=== PATIENT | male | born 1970 | race African-American/Black ===

== ENCOUNTER 2025-09-15 11:34 | Emergency (ER) | payer OTHER, SELFPAY ==
[2025-09-15 11:57] VITALS: BP 170/106
[2025-09-15 12:20] LABS: Hematocrit 43.4 % (39.0-52.0); Hemoglobin 14.8 g/dL (13.0-18.0); Mean Corp Hgb Conc. 34.1 g/dL (33.0-37.0); Mean Corpuscular Volume 76.7 fL (80.0-94.0); Nucleated Red Blood Cells % 0 % (-); Platelet Count 209 10^3/uL (130-400); Red Cell Dist. Width 16.5 % (11.5-14.5)
[2025-09-15 12:31] LABS: ALT (SGPT) 70 U/L (0-50); AST (SGOT) 40 U/L (17-59); Albumin 4.4 g/dl (3.5-5.0); Alkaline Phosphatase 79 U/L (38-126); Blood Urea Nitrogen 18 mg/dl (9-20); Calcium 9.2 mg/dl (8.4-10.2); Carbon Dioxide 26 mmol/L (22-30); Chloride 105 mmol/L (98-107); Glucose 109 mg/dl (70-99); Lipase 78 U/L (23-300); Potassium 4.3 mmol/L (3.5-5.1); Sodium 136 mmol/L (135-145); Total Protein 7.5 g/dl (6.3-8.2); eGFR > 60.00
[2025-09-15 14:34] VITALS: BP 155/96
[2025-09-15 15:44] VITALS: BMI 25.4
--- NOTE | 2025-09-15 15:52 | ED.GENMED ---
History of Present Illness
General
Chief Complaint: Abdominal Symptoms
Time Seen by Provider: 09/15/25 15:51
History of Present Illness
History of Present Illness:
FOCUSED PAST MEDICAL HISTORY
- No significant past medical history
REVIEW OF OLD RECORDS
- No old records available for review
Patient came in by ambulance and went to triage.
Note:
CHIEF COMPLAINT(S)
Vomiting.
HISTORY OF PRESENT ILLNESS
The patient is a 55-year-old male who presented with complaints of vomiting that began suddenly this morning. Per the patients , he was fine yesterday evening and woke up today feeling well until he started vomiting. The patient also reports
experiencing nausea and a 'little bit' of pain, which was more significant earlier today. The pain is described as a headache, indicating it may have different characteristics compared to his usual headaches. He denies any drug or alcohol use. The
patient has been somewhat difficult to arouse at times and appears confused on occasion. He is described as moderately tender with diffuse abdominal tenderness.
ADDITIONAL HISTORY OBTAINED FROM SOURCES OTHER THAN THE PATIENT
Per the patient�s spouse, the patient was fine yesterday evening and began vomiting suddenly this morning.
EXTERNAL RECORDS REVIEWED
Blood work revealed a slightly elevated white blood cell count, but electrolytes and kidney function tests were normal.
REVIEW OF SYSTEMS
- Gastrointestinal: Nausea, vomiting.
- Neurological: Appears confused at times, headache reported.
PHYSICAL EXAM
General: Alert, but somewhat difficult to arouse at times and appears confused. Of note, the patient's states that he 'gets like this when he has migraine'
Skin: Warm, dry.
Head: Normocephalic, atraumatic.
Neck: Supple, trachea midline.
Eye, Ears, Nose, Mouth, and Throat: Oral mucosa moist.
Cardiovascular: Normal peripheral perfusion, No edema.
Respiratory: Respirations are non-labored.
Gastrointestinal: Mildly diffusely tender without peritoneal signs
Back: Normal range of motion, Normal alignment.
Musculoskeletal: Normal range of motion, normal strength.
Neurological: Alert and oriented to person, although occasionally confused. No focal neurological deficit observed.
Psychiatric: Cooperative, appropriate mood & affect.
PLAN
An Intravenous line will be placed for administration of anti-nausea medication. A computed tomography scan of the abdomen has been ordered for further evaluation.
DIFFERENTIAL DIAGNOSIS
The Differential Diagnosis includes, in no particular order and is not limited to:
1. Gastroenteritis
2. Pancreatitis
3. Intestinal obstruction
4. Peptic ulcer disease
5. Acute cholecystitis
6. Appendicitis
7. Viral infection
8. Medication side effect
9. Renal colic
10. Alcohol withdrawal
RADIOLOGY
- CT suggest enteritis along with nondilated loops of bowel with a right inguinal hernia
LABS
- 11.1 white count, hemoglobin, chemistries unremarkable,
SUMMARY OF ENCOUNTER
The patient is a 55-year-old male who presented to the emergency department with sudden onset of vomiting, nausea, and headache. The patients initial assessment revealed difficulty with arousal and occasional confusion. Physical examination showed
moderate abdominal tenderness. Initial lab work identified a slightly elevated white blood cell count; electrolytes and kidney functions were normal. A CT scan of the abdomen was ordered for further evaluation. On reassessment, the patients primary
complaint shifted to a headache, with a noted soft tissue prominence in the right inguinal region, consistent with a hernia seen on imaging, though without incarceration.
PLAN
An intravenous line has been placed for the administration of anti-nausea medication. Continued observation and supportive care will be provided. The CT scan noted non-specific findings regarding the hernia with no signs of incarceration presently.
Management will focus on symptomatic relief of the headache and monitoring for any clinical changes.
INDEPENDENT REVIEW OF LABS AND INTERPRETATION OF TESTS
My independent review of the complete blood count indicates a slightly elevated white blood cell count. Electrolytes and kidney function tests were normal.
My independent CT scan of the abdomen interpretation is consistent with a soft tissue prominence in the right inguinal region with no clear sign of incarceration.
MEDICATION RECONCILIATION
An anti-nausea medication was administered intravenously. Specific medication name not indicated.
MEDICAL DECISION MAKING
- Complexity of Data Reviewed:
Chronic conditions affecting care. Differential diagnosis includes gastroenteritis, pancreatitis, intestinal obstruction, peptic ulcer disease, acute cholecystitis, appendicitis, viral infection, medication side effect, renal colic, and alcohol
withdrawal.
- Data:
Category 1
External records reviewed included blood work results, showing a slightly elevated white blood cell count, with normal electrolytes and kidney functions.
Category 2
Clinical information was obtained from the patients , providing insight into the patients typical response to migraines and supporting details about the events preceding his symptoms.
Category 3
There was no explicit mention of discussions with other healthcare providers in the transcript available.
- Risk:
Consideration of Admission/Observation: Escalation of care including admission/observation was considered given the complexity and risk of the patients presenting complaint, exam findings, and/or their underlying comorbidities. However, ultimately I
feel the patient is safe for outpatient management with close follow-up. Reasoning: Work-up reassuring, does not reveal any acute life/organ-threatening processes, patients symptoms well controlled upon reevaluation, reexamination is reassuring,
vitals are stable, patient agreeable with discharge, reliable for follow-up.
DIAGNOSIS
- Migraine with vomiting: ICD-10 code G43.109
- Inguinal hernia without obstruction or gangrene: ICD-10 code K40.90
UPDATE and Zofran
- Patient was given IV fluids
- Mild leukocytosis along with some abdominal discomfort/tenderness�CT imaging obtained
- CT shows enteritis and shows a nonobstructed right inguinal hernia
- Still complains of a headache and appears altered however the tells me that this is how he gets when he has a bad migraine
- Giving additional Toradol and I did give Toradol along with Reglan and Benadryl earlier
- came up to me at 7:45 PM indicating the patient is now feeling improved and feels well enough to go home
Phy Exam
Physical Exam
Physical Exam:
See HPI
Course
Orders/Labs/Results
Orders:
Orders
09/15/25 12:07
Complete Blood Count/With Diff Urgent
Comprehensive Metabolic Panel Urgent
Lipase Urgent
09/15/25 15:58
CT Abd/pelvis W Iv Cont Urgent
Comment:
Reason For Exam: vomiting; abd pain
0.9% Sodium Chloride 1000 ml [Nss] 1,000 ml IV BOLUS
Ondansetron Injectable [Zofran] 4 mg IV NOW STA
09/15/25 17:10
Acetaminophen [Tylenol] 1,000 mg PO NOW STA
09/15/25 18:28
Diphenhydramine [Benadryl] 25 mg IV NOW STA
Ketorolac [Toradol] 15 mg IV NOW STA
Metoclopramide [Reglan] 10 mg IV NOW STA
09/15/25 19:00
Ketorolac [Toradol] 15 mg IV NOW STA
09/15/25 19:20
Urinalysis Reflex To Culture Urgent
Date Specimen was Collected: 09/15/25
Time Specimen was Collected: 12:01
Abnormal Lab Results
09/15/25
12:07
WBC 11.1 H 10^3/uL
(4.8-10.8)
MCV 76.7 L fL
(80.0-94.0)
MCH 26.1 L pg
(27.0-31.0)
RDW 16.5 H %
(11.5-14.5)
MPV 10.6 H fL
(7.4-10.4)
Absolute Neuts (auto) 8.2 H 10^3/uL
(1.4-6.5)
Glucose 109 H mg/dl
(70-99)
ALT 70 H U/L
(0-50)
09/15/25 12:07
09/15/25 12:07
Vital Signs
Initial and Last Documented VS:
Initial Vital Signs
Temp Pulse Resp BP Pulse Ox
36.8 C 81 14 170/106 96
09/15/25 11:57 09/15/25 11:57 09/15/25 11:57 09/15/25 11:57 09/15/25 11:57
Last Documented Vital Signs
Temp Pulse Resp BP Pulse Ox
36.2 C 69 18 185/115 96
09/15/25 14:34 09/15/25 16:21 09/15/25 16:21 09/15/25 16:21 09/15/25 16:21
*Pulse Oximetry
SaO2: 98
Oxygen Mode of Delivery: Room air
Patient hypoxic: no
*Critical Care Note
Total Time (30-74mins, 75-104mins- exclusive of procedures): Not Applicable
ED Attending Note
-
Portions of this chart may have been created with voice recognition software.� Occasional wrong word or��sound alike� substitutions may have occurred due to the inherent limitations of voice recognition software.
Discharge Plan
Departure
Patient Disposition: Home (Routine Discharge)
Date of Disposition: 09/15/25
Time of Disposition: 19:59
Patient with high blood pressure during this ER visit?: Yes
Discharge Problem:
Migraine
Instructions: Nausea and Vomiting, Adult (DC), Migraine in adults, BLOOD PRESSURE
Prescriptions:
New
ondansetron HCl 4 mg tablet
4 mg PO Q8H PRN (Reason: nausea and vomiting) Qty: 14 0RF
Referrals:
Ana Rosa Morton CRNP [Family Provider, General]
Guido Patel MD [Active, Surgical]
Activity Restrictions/Additional Instructions:
Your CAT scan of your abdomen and pelvis suggest some enterocolitis�this will likely improve on its own. It also shows a large right inguinal hernia but there is no sign of obstruction. I recommend that you follow-up with the surgeon such as Dr.
Jorge. I sent a prescription for Zofran to your pharmacy. Your blood pressure has been very high here, you should follow-up your primary care doctor for reassessment as well.
Interventions
Interventions:
*General Assessment Last Done: 09/15/25 11:57
*Neglect/Abuse Screening Last Done: 09/15/25 11:57
*ED COVID-19 Vaccine History Last Done: 09/15/25 11:57
*ED Influenza Vaccine History Last Done: 09/15/25 11:57
[facility] Fall Risk Assessment Tool Last Done: 09/15/25 15:48
*Risk Screen - Suicide (C-SSRS) Last Done: 09/15/25 11:57
XX-Juvndz-Bbpicwcnhq Assessment Last Done: 09/15/25 16:21
Discharge Date and Time
Print Language: INDONESIAN
[2025-09-15] MEDS: NSS 1000 IV (16:15)
[2025-09-15] MEDS: ZOFRAN 4 MG IV (16:16)
[2025-09-15 16:21] VITALS: BP 185/115
[2025-09-15] MEDS: TYLENOL 1000 MG PO (17:30)
[2025-09-15] MEDS: TORADOL 15 MG IV ×2 (18:37→19:10)
[2025-09-15] MEDS: REGLAN 10 MG IV (18:39)
[2025-09-15] MEDS: BENADRYL 25 MG IV (18:40)
[2025-09-15 20:08] VITALS: BP 166/110
== END 2025-09-15 20:23 | disposition home or self-care (01) ==
LOC: EMR 11:34
PROVIDERS: Emergency Medicine; EMERGENCY PHYSICIAN Emergency Medicine; FAMILY PHYSICIAN Nurse Practitioner
DX: G43.909 Migraine, unspecified, not intractable, without status migrainosus (principal); D72.829 Elevated white blood cell count, unspecified; K40.90 Unilateral inguinal hernia, without obstruction or gangrene, not specified as recurrent
CPT/HCPCS: 99284; 96374; 96375 ×3; 96376; 96361; 74177; 80053; 83690; 85025; Q9967